=== PATIENT | female | born 1985 | race Caucasian/White ===

== ENCOUNTER → 2018-07-28 16:11 | Outpatient (CLI) | payer OTHER, SELFPAY ==
[2018-07-28 15:03] VITALS: BMI 22.3
[2018-07-28 16:48] LABS: Absolute Lymphocyte Count 1.73 X10^3/ul (0.83-4.51); Basophil# 0.04 X10^3/uL; Basophil% 0.6 % (0-1); Eosinophil# 0.41 X10^3/uL; Hematocrit 38.4 % (37-47); Hemoglobin 13.1 g/dl (12.0-15.0); Lymphocyte # 1.73 X10^3/ul (4.0); Lymphocyte % 25.4 % (19-41); Mean Corp Hgb Conc 34.1 g/gl (32-36); Mean Platelet Vol. 12.2 fl (6.2-12.0); Monocyte# 0.58 X10^3/uL; Monocyte% 8.5 % (0-10); Neutrophil # 4.01 X10^3/uL (2.7-7.7); Neutrophil % 59.1 % (47-70); Platelet Count 113 K/mm3 (150-450); RBC Distribution Width CV 11.7 % (11.6-14.6); RBC Distribution Width SD 37.8 fl (35.1-43.9); Red Blood Count 4.22 M/mm3 (4.2-5.4); White Blood Count 6.8 K/mm3 (4.4-11.0)
[2018-07-28 16:49] LABS: POSITIVE COUNT NO; POSITIVE DIFFERENTIAL NO; POSITIVE MORPHOLOGY NO
[2018-07-28 18:21] LABS: HIV - WCH Non-Reactive (Nonreactive); Rubella IgG 16.1 IU/mL
[2018-07-28 19:59] LABS: Chlamydia Trachomatis by PCR Negative (Negative); Neisserai gonorrhoeae by PCR Negative (Negative); Probe Check PASS; Sample Adequacy Control PASS; Specimen Processing Control PASS
[2018-07-29 20:21] LABS: Rapid Plasmin Reagin (RPR) NONREACTIVE (NONREACTIVE)
[2018-07-30 08:28] LABS: HEPATITIS B SURFACE AG Negative (Negative)
[2018-08-03 14:52] LABS: HPV APTIMA, High Risk Negative (Negative)
== END ==
PROVIDERS: Family Provider Family Medicine; PCP Family Medicine; Referring Provider Obstetrics & Gynecology; Visit Provider Obstetrics & Gynecology
DX: Z34.90 Encounter for supervision of normal pregnancy, unspecified, unspecified trimester (principal); Z12.4 Encounter for screening for malignant neoplasm of cervix
CPT/HCPCS: 36415; 85025; 86592; 86703; 86762; 86850; 86900; 87086; 87088; 87340; 87491; 87591; 87624; 88175; G0145

== ENCOUNTER → 2018-08-27 10:08 | Outpatient (CLI) | payer OTHER, SELFPAY ==
[2018-08-27 09:29] VITALS: BMI 22.4
[2018-08-27 10:27] LABS: Absolute Lymphocyte Count 1.65 X10^3/ul (0.83-4.51); Basophil# 0.04 X10^3/uL; Basophil% 0.5 % (0-1); Eosinophil# 0.18 X10^3/uL; Eosinophils% 2.1 % (0-5); Hematocrit 37.3 % (37-47); Hemoglobin 12.7 g/dl (12.0-15.0); Lymphocyte # 1.65 X10^3/ul (4.0); Lymphocyte % 19.6 % (19-41); Mean Corpuscular Hgb 30.8 pg (27.0-32.0); Mean Corpuscular Volume 90.5 fL (81-99); Mean Platelet Vol. 10.9 fl (6.2-12.0); Monocyte# 0.55 X10^3/uL; Monocyte% 6.5 % (0-10); Neutrophil % 71.2 % (47-70); POSITIVE COUNT NO; POSITIVE DIFFERENTIAL NO; POSITIVE MORPHOLOGY NO; Platelet Count 173 K/mm3 (150-450); RBC Distribution Width CV 12.2 % (11.6-14.6); RBC Distribution Width SD 40.1 fl (35.1-43.9); Red Blood Count 4.12 M/mm3 (4.2-5.4); White Blood Count 8.4 K/mm3 (4.4-11.0)
== END ==
PROVIDERS: Family Provider Family Medicine; PCP Family Medicine; Visit Provider Obstetrics & Gynecology
DX: Z34.91 Encounter for supervision of normal pregnancy, unspecified, first trimester (principal); Z3A.12 12 weeks gestation of pregnancy
CPT/HCPCS: 36415; 85025

== ENCOUNTER → 2018-10-13 | Outpatient (CLI) | payer OTHER, SELFPAY ==
[2018-09-24 09:16] VITALS: BMI 22.4
== END | disposition home or self-care (01) ==
PROVIDERS: Family Provider Family Medicine; PCP Family Medicine; Referring Provider Obstetrics & Gynecology; Visit Provider Obstetrics & Gynecology
DX: Z34.82 Encounter for supervision of other normal pregnancy, second trimester (principal)
CPT/HCPCS: 36415

== ENCOUNTER → 2018-12-16 08:59 | Outpatient (CLI) | payer OTHER, SELFPAY ==
[2018-11-26 11:28] VITALS: BMI 22.4
--- NOTE | 2018-12-16 09:01 | US_ITS ---
STUDY: SECOND AND THIRD TRIMESTER OBSTETRICAL ULTRASOUND REASON FOR EXAM: Female, 33 years old. growth. LMP: Unknown. Estimated due date March 08, 2019 is provided. TECHNIQUE: Transabdominal TECHNICAL QUALITY: Adequate. PRIOR ULTRASOUND: None. FINDINGS: There is a single intrauterine fetus. The fetus is in a breech presentation. There is demonstrated cardiac activity with a heart rate of 156 bpm. There is a normal amniotic fluid volume. The largest amniotic fluid pocket measures 6.0 cm. The amniotic fluid index (SANDEEP) is 15.1 cm. The placenta is posterior in location and is not low lying. There are Grade 1 placental changes. The cervix measures 4.0 cm in length and is closed. The adnexal regions are not visualized. BIOMETRY: BPD: 7.4 cm: 29 weeks, 5 days HC: 27.3 cm: 29 weeks, 6 days AC: 25.0 cm: 29 weeks, 2 days FL: 5.5 cm: 29 weeks, 0 days CI: 79% FL/BPD: 74% FL/AC: 22% HC/AC: 1.09 age by current US: 29 weeks, 4 days. ALLEN by current US: February 27, 2019. Estimated weight: 1353 grams, +/- 198 grams, 72 %. Age by given ALLEN: 28 weeks, 2 days. Given ALLEN: March 08, 2019. US/OB Limited With Biometrics IMPRESSION: 1. Single living intrauterine fetus, presently in breech presentation, at estimated gestational age of 29 weeks, 4 days. Estimated date of delivery by today's study is February 27, 2019. 2. Estimated weight is 1353 g. 3. The cervix is closed. Cervical length is 4.0 cm. 4. Grade 1 posterior placenta is not low-lying. 5. Normal amniotic fluid volume within index of 15.1 cm. Electronically Signed: Isaias Carl MD at 16:54 EDT , Service support ,
== END ==
PROVIDERS: Family Provider Family Medicine; PCP Family Medicine; Referring Provider Obstetrics & Gynecology; Visit Provider Obstetrics & Gynecology
DX: O28.3 Abnormal ultrasonic finding on antenatal screening of mother (principal)
CPT/HCPCS: 76816

== ENCOUNTER → 2018-12-17 08:59 | Outpatient (CLI) | payer OTHER, SELFPAY ==
[2018-12-17 08:45] VITALS: BMI 22.4
[2018-12-17 09:54] LABS: Absolute Lymphocyte Count 1.21 X10^3/uL (0.83-4.51); Basophil# 0.03 X10^3/uL; Basophil% 0.4 % (0-1); Eosinophil# 0.09 X10^3/uL; Eosinophils% 1.1 % (0-5); Hematocrit 39.1 % (37-47); Hemoglobin 13.1 g/dL (12.0-15.0); Lymphocyte # 1.21 X10^3/ul (4.0); Lymphocyte % 15.3 % (19-41); Mean Corp Hgb Conc 33.5 g/dL (32-36); Mean Corpuscular Hgb 31.8 pg (27.0-32.0); Mean Corpuscular Volume 94.9 fL (81-99); Mean Platelet Vol. 11.4 fl (6.2-12.0); Monocyte# 0.47 X10^3/uL; NRBC Flagged by Analyzer 0 % (0-5); Neutrophil # 6.02 X10^3/uL (2.7-7.7); Neutrophil % 76.3 % (47-70); Platelet Count 143 K/mm3 (150-450); RBC Distribution Width CV 12.7 % (11.6-14.6); RBC Distribution Width SD 44.1 fl (35.1-43.9); Red Blood Count 4.12 M/mm3 (4.2-5.4); White Blood Count 7.9 K/mm3 (4.4-11.0)
[2018-12-17 10:12] LABS: Glucose Challenge Gest 1H 50g 56 mg/dL (70-140)
== END ==
PROVIDERS: Family Provider Family Medicine; PCP Family Medicine; Referring Provider Obstetrics & Gynecology; Visit Provider Obstetrics & Gynecology
DX: O99.112 Other diseases of the blood and blood-forming organs and certain disorders involving the immune mechanism complicating pregnancy, second trimester (principal); D69.6 Thrombocytopenia, unspecified; O28.3 Abnormal ultrasonic finding on antenatal screening of mother; Z3A.25 25 weeks gestation of pregnancy
CPT/HCPCS: 36415; 82950; 85025

== ENCOUNTER → 2019-01-14 09:05 | Outpatient (CLI) | payer OTHER, SELFPAY ==
[2019-01-14 08:58] VITALS: BMI 22.4
[2019-01-14 09:34] LABS: Absolute Neutrophil Count 8.4 X10^3/uL (2.0-7.7); Basophil# 0.04 X10^3/uL; Basophil% 0.4 % (0-1); Eosinophil# 0.14 X10^3/uL; Eosinophils% 1.4 % (0-5); Hematocrit 40.7 % (37-47); Hemoglobin 13.7 g/dL (12.0-15.0); Lymphocyte % 7.9 % (19-41); Mean Corp Hgb Conc 33.7 g/dL (32-36); Mean Corpuscular Hgb 32.2 pg (27.0-32.0); Mean Corpuscular Volume 95.8 fL (81-99); Mean Platelet Vol. 11.5 fl (6.2-12.0); Monocyte% 6.9 % (0-10); NRBC Flagged by Analyzer 0 % (0-5); Neutrophil # 8.42 X10^3/uL (2.7-7.7); Neutrophil % 82.6 % (47-70); Platelet Count 137 K/mm3 (150-450); RBC Distribution Width CV 12.8 % (11.6-14.6); Red Blood Count 4.25 M/mm3 (4.2-5.4); White Blood Count 10.2 K/mm3 (4.4-11.0)
[2019-01-14 09:51] LABS: ROM Internal Control Test YES-OK TO RESULT pt. (Internal QC); ROM Patient Test Negative (Negative)
== END ==
PROVIDERS: Family Provider Family Medicine; PCP Family Medicine; Referring Provider Nurse Practitioner Women's Health; Visit Provider Nurse Practitioner Women's Health
DX: Z34.90 Encounter for supervision of normal pregnancy, unspecified, unspecified trimester (principal); N89.8 Other specified noninflammatory disorders of vagina
CPT/HCPCS: 36415; 84112; 85025

== ENCOUNTER → 2019-02-08 12:14 | Outpatient (CLI) | payer OTHER, SELFPAY ==
[2019-01-28 09:26] VITALS: BMI 22.4
--- NOTE | 2019-02-08 12:16 | US_ITS ---
STUDY: SECOND AND THIRD TRIMESTER OBSTETRICAL ULTRASOUND - LIMITED REASON FOR EXAM: Female, 33 years old LMP: 06/01/2018 PRIOR ULTRASOUND: 12/16/1989 TECHNIQUE: Transabdominal TECHNICAL QUALITY: Adequate. FINDINGS: There is a single intrauterine fetus. The fetus is in a cephalic presentation. There is demonstrated cardiac activity with a heart rate of 140 bpm. There is a normal amniotic fluid volume. The largest amniotic fluid pocket measures 3.9 cm. The amniotic fluid index (SANDEEP) is 13.0 cm. The placenta is posterior in location and is not low lying. There are Grade 1 placental changes. The cervix measures cm in length. BIOMETRY: BPD: 9.2 cm: 37 weeks, 2 days HC: 32.4 cm: 36 weeks, 5 days AC: 32.4 cm: 36 weeks, 1 days FL: 7.0 cm: 35 weeks, 6 days Age by LMP: 36 weeks, 0 days. ALLEN by LMP: 03/08/2019. age by current US: 36 weeks, 3 days. ALLEN by current US: 03/05/2019. Estimated weight: 2960 grams, +/- 444 grams, 68 percentile. Gender: US/OB Limited With Biometrics IMPRESSION: Living intrauterine of 36 weeks 3 days as described above Electronically Signed: Norberto Stephens MD at 16:10 EDT Tel , Service support ,
== END ==
PROVIDERS: Family Provider Family Medicine; PCP Family Medicine; Referring Provider Obstetrics & Gynecology; Visit Provider Obstetrics & Gynecology
DX: O28.3 Abnormal ultrasonic finding on antenatal screening of mother (principal); Z3A.36 36 weeks gestation of pregnancy
CPT/HCPCS: 76816

== ENCOUNTER → 2019-02-11 08:45 | Outpatient (CLI) | payer OTHER, SELFPAY ==
[2019-02-11 08:34] VITALS: BMI 22.4
[2019-02-11 09:04] LABS: Absolute Lymphocyte Count 1.02 X10^3/uL (0.83-4.51); Absolute Neutrophil Count 5.3 X10^3/uL (2.0-7.7); Basophil# 0.04 X10^3/uL; Basophil% 0.6 % (0-1); Eosinophil# 0.09 X10^3/uL; Eosinophils% 1.3 % (0-5); Hematocrit 40.8 % (37-47); Hemoglobin 13.8 g/dL (12.0-15.0); Lymphocyte # 1.02 X10^3/ul (4.0); Lymphocyte % 14.6 % (19-41); Mean Corp Hgb Conc 33.8 g/dL (32-36); Mean Corpuscular Hgb 31.9 pg (27.0-32.0); Mean Corpuscular Volume 94.2 fL (81-99); Monocyte# 0.51 X10^3/uL; Monocyte% 7.3 % (0-10); NRBC Flagged by Analyzer 0 % (0-5); Neutrophil # 5.26 X10^3/uL (2.7-7.7); Neutrophil % 75.3 % (47-70); Platelet Count 126 K/mm3 (150-450); RBC Distribution Width CV 12.5 % (11.6-14.6); RBC Distribution Width SD 43.8 fl (35.1-43.9); Red Blood Count 4.33 M/mm3 (4.2-5.4)
== END ==
PROVIDERS: Family Provider Family Medicine; PCP Family Medicine; Referring Provider Obstetrics & Gynecology; Visit Provider Obstetrics & Gynecology
DX: D69.6 Thrombocytopenia, unspecified (principal); O99.119 Other diseases of the blood and blood-forming organs and certain disorders involving the immune mechanism complicating pregnancy, unspecified trimester
CPT/HCPCS: 36415; 85025; 87081

== ENCOUNTER → 2019-02-18 16:02 | Outpatient (CLI) | payer OTHER, SELFPAY ==
[2019-02-18 08:26] VITALS: BMI 22.4
--- NOTE | 2019-02-18 16:18 | US_ITS ---
STUDY: SECOND AND THIRD TRIMESTER OBSTETRICAL ULTRASOUND REASON FOR EXAM: Female, 33 years old SANDEEP.. LMP: June 01, 2018. TECHNIQUE: Transabdominal TECHNICAL QUALITY: Adequate. PRIOR ULTRASOUND: February 08, 2019 and December 16, 2018 FINDINGS: There is a single intrauterine fetus. The fetus is in a cephalic presentation. There is demonstrated cardiac activity with a heart rate of 122 bpm. There is a low normal amniotic fluid volume. The largest amniotic fluid pocket measures 3.4 cm. The amniotic fluid index (SANDEEP) is 8.48 cm. The placenta is fundal and posterior low-lying . There are Grade 2 placental changes. The cervix is not visualized age by prior US: 38 weeks, 5 days. ALLEN by prior US: February 27, 2019. Age by LMP: 37 weeks, 3 days. ALLEN by LMP: March 08, 2019. US/OB Limited (No Biometrics) IMPRESSION: 1. Limited study to establish SANDEEP. There is a low normal SANDEEP of 8.48 cm. 2. Live single intrauterine in a vertex presentation. 3. heart rate of 122 bpm. Electronically Signed: Cecil Olea DO at 19:20 EDT Tel [phone], Service support ,
== END ==
PROVIDERS: Family Provider Family Medicine; PCP Family Medicine; Referring Provider Obstetrics & Gynecology; Visit Provider Obstetrics & Gynecology
DX: O28.3 Abnormal ultrasonic finding on antenatal screening of mother (principal); Z3A.00 Weeks of gestation of pregnancy not specified
CPT/HCPCS: 76815

== ENCOUNTER → 2019-02-22 11:25 | Outpatient (CLI) | payer OTHER, SELFPAY ==
[2019-02-18 08:26] VITALS: BMI 22.4
--- NOTE | 2019-02-22 11:27 | US_ITS ---
STUDY: SECOND AND THIRD TRIMESTER OBSTETRICAL ULTRASOUND - LIMITED REASON FOR EXAM: Female, 33 years old. well being. Assess amniotic fluid index. LMP: June 01, 2018 per prior exam. PRIOR ULTRASOUND: Limited OB ultrasound February 18, 2019 and February 08, 2019. TECHNIQUE: Transabdominal TECHNICAL QUALITY: Adequate. FINDINGS: There is a single intrauterine fetus. The fetus is in a cephalic presentation. There is demonstrated cardiac activity with a heart rate of 128 bpm. There is a lower normal amniotic fluid volume. The largest amniotic fluid pocket measures 3.37 cm. The amniotic fluid index (SANDEEP) is 7.92 cm. The placenta is fundal in location. There are Grade 3 placental changes. The cervix is not visualized. Age by LMP: 38 weeks, 0 days. ALLEN by LMP: March 08, 2019. age by February 08 US: 39 weeks, 2 days. ALLEN by US: February 27, 2019. US/OB Limited (No Biometrics) IMPRESSION: 1. Single living intrauterine fetus in cephalic presentation. 2. Lower normal amniotic fluid volume with an index of 7.92 cm. 3. Grade 3 fundal placenta is not low-lying. Electronically Signed: Isaias Carl MD at 19:39 EDT , Service support ,
== END ==
PROVIDERS: Family Provider Family Medicine; PCP Family Medicine; Referring Provider Obstetrics & Gynecology; Visit Provider Obstetrics & Gynecology
DX: Z36.9 Encounter for antenatal screening, unspecified (principal)
CPT/HCPCS: 76815

== ENCOUNTER → 2019-03-03 11:00 | Outpatient (CLI) | payer OTHER, SELFPAY ==
[2019-02-24 09:55] VITALS: BMI 22.4
[2019-03-03 09:14] VITALS: BMI 22.4
--- NOTE | 2019-03-03 11:02 | US_ITS ---
HISTORY: well-being. 33 images. 3 cine clips. Findings: Cine clips demonstrate heart motion. Presentation is cephalic. heart motion is detected by M-mode imaging at 120 bpm. The placenta is fundal. SANDEEP is 13.3 cm. Breathing movements were demonstrated. Gross body movements are demonstrated. tone is perceived as normal. measurements were not performed. US/Biophysical Profile IMPRESSION: Biophysical profile score is 8 out of 8. SANDEEP is 13.3 cm. Presentation is cephalic. at 0135 Reported and signed by: Ananth Coleman MD Electronically Signed: Ananth Coleman MD at 1:34 EDT Tel , Service support ,
== END ==
PROVIDERS: Family Provider Family Medicine; PCP Family Medicine; Referring Provider Nurse Practitioner Women's Health; Visit Provider Nurse Practitioner Women's Health
DX: O28.8 Other abnormal findings on antenatal screening of mother (principal); Z3A.00 Weeks of gestation of pregnancy not specified
CPT/HCPCS: 76818

== ENCOUNTER 2019-03-06 03:26 | Inpatient (IN) | payer OTHER, SELFPAY ==
[2019-01-28 09:26] VITALS: BMI 22.4
[2019-03-03 09:14] VITALS: BMI 22.4
[2019-03-06 03:25] LABS: ROM Internal Control Test YES-OK TO RESULT pt. (Internal QC); ROM Patient Test POSITIVE (Negative); Record Kit Lot#, ROM+ J8255
[2019-03-06] MEDS: Lactated Ringers 1,000 ML 50 ML IV (03:50)
[2019-03-06] MEDS: Lactated Ringers 500 ML 999 ML IV (03:55)
[2019-03-06 04:11] LABS: Absolute Lymphocyte Count 2.04 X10^3/uL (0.83-4.51); Absolute Neutrophil Count 5.8 X10^3/uL (2.0-7.7); Basophil# 0.05 X10^3/uL; Basophil% 0.6 % (0-1); Eosinophil# 0.14 X10^3/uL; Eosinophils% 1.6 % (0-5); Hematocrit 41.7 % (37-47); Hemoglobin 13.6 g/dL (12.0-15.0); Lymphocyte # 2.04 X10^3/ul (4.0); Lymphocyte % 23.4 % (19-41); Mean Corp Hgb Conc 32.6 g/dL (32-36); Mean Corpuscular Hgb 30.6 pg (27.0-32.0); Mean Corpuscular Volume 93.7 fL (81-99); Mean Platelet Vol. 12.5 fl (6.2-12.0); Monocyte# 0.62 X10^3/uL; Monocyte% 7.1 % (0-10); NRBC Flagged by Analyzer 0 % (0-5); Neutrophil # 5.83 X10^3/uL (2.7-7.7); Neutrophil % 66.7 % (47-70); Platelet Count 136 K/mm3 (150-450); RBC Distribution Width CV 12.3 % (11.6-14.6); RBC Distribution Width SD 42.5 fl (35.1-43.9); Red Blood Count 4.45 M/mm3 (4.2-5.4); White Blood Count 8.7 K/mm3 (4.4-11.0)
[2019-03-06 04:14] VITALS: BMI 27.4
[2019-03-06] MEDS: fentaNYL-bupivacaine (epidural) 100 ML BAG EPIDURAL (05:10)
[2019-03-06] MEDS: Oxytocin 30 units/NS 500 ml 30 UNITS/500 ML IV.SOLN 334 UNITS IV (06:09)
--- NOTE | 2019-03-06 06:28 | PCM.HP.BLA ---
History and Physical Date of Admission: 03/06/19 History of This : This is a 33-year-old patient 2 para 1 who presents in active labor. care has been uneventful except for thrombocytopenia during the , echogenic focus in the baby's heart, and borderline oligohydramnios. Vital Signs 03/03/19 Body Mass Index (BMI) 22.4 03/03/19 Height 5 ft 4 in 03/03/19 Weight: 159 lb 03/03/19 Body Mass Index (BMI) 27.3 03/03/19 Blood Pressure 108/60 Allergies citric acid [From DDAVP] Allergy (Verified 03/03/19 09:14) Unknown desmopressin acetate [From DDAVP] Allergy (Verified 03/03/19 09:14) Unknown sodium phosphate,dibasic [From DDAVP] Allergy (Verified 03/03/19 09:14) Unknown Medications ondansetron HCl 4 mg tablet 4 mg PO BID-TID PRN 07/28/18 [History Confirmed 03/03/19] vitamin#30 30 mg iron-10 mg iron-folic acid 1 mg-omg3 capsule cap PO cap 07/28/18 [History Confirmed 03/03/19] meclizine 25 mg tablet 25 mg PO TID #90 tab 09/24/18 [Rx Confirmed 03/03/19] breast pump See Rx Instructions .ROUTE .MEDSUPPLY #1 ea 12/22/18 [Rx Confirmed 03/03/19] ranitidine 150 mg tablet 150 mg PO BID #60 tab 12/31/18 [Rx Confirmed 03/03/19] Last Menstral Period: 06/01/18 Zika: Zika virus screening: Negative : No PFSH PFSH Social History (Updated 03/03/19 @ 09:34 by DAMIR Anthony) Smoking Status: Never smoker alcohol intake: current details: social substance use type: does not use caffeine: Yes what type of physical activity do you participate in: walking seatbelt use: always do you feel safe at home: Yes additional social history: [employer]- [employer] Patient works as a chief financial officer Pregancy History 2 Elective abortions Hx Para 1 Spontaneous abortions Hx # Term Pregnancies Ectopic pregnancies Hx # Pregnancies Multiple births # of living children Past Pregnancies Del. Date Name GA/Weeks Outcome Route Bth Weight Infant Gen Labor Lgth Anesthesia Del Locatn Provider FOB Unknown 2010 [place] 40 live - full term 8 lbs Female WB ALLEN Calculator Estimated Delivery Date Method Current WG Current Estimate 03/08/19 LMP (Certain) 39w 2d Expected Delivery Route/Plan Labor Preferences- labor support person: [employer] pain management options preferred: epidural cut cord/dad catch: yes : yes PP control planned: iud discussed possible routes of delivery and associated risks: discussed and no questions. special requests: no Specific Issue/Plans flu vaccine: declines tdap vaccine: given rhogam: na LARC form signed: declines Problem list reviewed and updated with the most current plan of care details and appropriate orders placed. Relevant counseling for the gestational age provided. Continue routine care and follow up unless otherwise noted in visit notes/problem list details Initial Weight: 130 lb Date EGA Weight BP Urine Prot Glucose FHR FuHt Pres Mov CTX Dilation Effaced St Visit Note 08/27/18 12w 3d 130 lb 6 oz (+6 oz) 94/60 Negative Negative 160 no vb cramping, still nauseated, discussed supprotive therapy 09/24/18 16w 3d 133 lb (+3 lb) 100/68 Negative Negative 145 16 no vb lof cramping, still nauseated will add meclizine 10/25/18 20w 6d 139 lb 4 oz (+9 lb 4 oz) 100/76 Negative Negative 140 20 no vb lof cramping reviewed us normal genetics 11/26/18 25w 3d 146 lb 4 oz (+16 lb 4 oz) 118/60 140 25 no vb lof good fm n oregualr ctx, growth us at 28-30 12/17/18 28w 3d 149 lb (+19 lb) 104/68 Negative Negative 140 29 no vb lof good fm n oregualr ctx 12/31/18 30w 3d 151 lb (+21 lb) 98/80 Negative Negative 140 31 no vb lof good fm no regular ctx 01/14/19 32w 3d 154 lb (+24 lb) 102/70 Negative Negative 136 32 0 Has cough, congestion. Thinks had leakage clear fluid yesterday. Good FM. NO Vb. 01/28/19 34w 3d 156 lb (+26 lb) 102/62 Negative Negative 135 34 Cephalic Active absent no vb lof 02/11/19 36w 3d 157 lb 4 oz (+27 lb 4 oz) 104/74 Negative Negative 140 35 Cephalic Active absent 1 30 no vb lof had us this week 02/18/19 37w 3d 160 lb (+30 lb) 100/66 125 32 Cephalic 1.5 check sandeep today no vb lof good fm no reg ctx 02/24/19 38w 2d 157 lb (+27 lb) 108/76 Negative Negative 120 sandeep 11 cm no vb lof good fm no reg ctx 03/03/19 39w 2d 159 lb (+29 lb) 108/60 Negative Negative 142 37 Cephalic 3.0 60 SANDEEP US today. Good FM. No LOF, VB. Irreg CTX Visit Notes Visit Date: 03/03/19 ??SANDEEP US today. Good FM. No LOF, VB. Irreg CTX ??Rebecca Taylor NP-C on 03/03/19 Visit Date: 02/24/19 ??sandeep 11 cm no vb lof good fm no reg ctx ??Iris Corbin MD on 02/24/19 Visit Date: 02/18/19 ??check sandeep today no vb lof good fm no reg ctx ??Iris Corbin MD on 02/18/19 Visit Date: 02/11/19 ??no vb lof had us this week ??Iris Corbin MD on 02/11/19 Visit Date: 01/28/19 ??no vb lof ??Iris Corbin MD on 01/28/19 Visit Date: 01/14/19 ??Has cough, congestion. Thinks had leakage clear fluid yesterday. Good FM. NO Vb. ??Rebecca Taylor NP-C on 01/14/19 Visit Date: 12/31/18 ??no vb lof good fm no regular ctx ??Iris Corbin MD on 12/31/18 Visit Date: 12/17/18 ??no vb lof good fm n oregualr ctx ??Iris Corbin MD on 12/17/18 Visit Date: 11/26/18 ??no vb lof good fm n oregualr ctx, growth us at 28-30 ??Iris Corbin MD on 11/26/18 Visit Date: 10/25/18 ??no vb lof cramping reviewed us normal genetics ??Iris Corbin MD on 10/25/18 Visit Date: 09/24/18 ??no vb lof cramping, still nauseated will add meclizine ??Iris Corbin MD on 09/24/18 Visit Date: 08/27/18 ??no vb cramping, still nauseated, discussed supprotive therapy ??Iris Corbin MD on 08/27/18 ACOG First Trimester First Trimester: Desire for , Alcohol, Tobacco Cessation, Illicit/Recreational Drug/Substance Use, Intimate Partner Violence, Barriers to care, Unstable Housing, Communication Barriers, Environmental/Work Hazards, Anticipated Course of Care, Toxoplasmosis Precations, Use of Any medications, Sexual activity, Exercise, Dental Care, Sauna/Hot tub use, Seat Belt use, Childbirth classes/Hospital facilities, , Travel, Indications for US and Screening for Aneuploidy Diagnostics Diagnostics Diagnostics Glucose 1 Hr 50 gm 56 mg/dL (70-140) L 12/17/18 Hgb 13.8 g/dL (12.0-15.0) 02/11/19 Hct 40.8 % (37-47) 02/11/19 Details: HIV: Urine Culture: Sequential Screen: NIPT Screen: Results [id number] Office Urine Glucose Negative Last Edit by Sapna Dow on 03/03/19 09:15 Office Urine Protein Negative Last Edit by Sapna Dow on 03/03/19 09:15 PHYSICAL EXAMINATION General Appearence: 33 yo female in no acute distress Vital Signs: AF, VSS Heart: RRR without rubs or gallops Lungs: CTA x 2 Breasts: deferred Abdomen: gravid Pelvis: Cervix: 4 cm Presentation: cephalic Station: -2 Fetus: Size: AGA Movement: present Heart: present Impression /Plan: 39+ week Intrauterine in active labor. Preparations in progress for delivery.
--- NOTE | 2019-03-06 06:46 | PCM.OPRPT ---
Vaginal Delivery Maternal Presentation: Active Labor Amniotic Membrane Rupture Type: Spontaneous Amniotic Fluid Description: Clear Final ALLEN: 03/08/19 Final ALLEN Source: US <20 weeks Gestational age: 39 Weeks and 5 Days Date of Procedure: 03/06/19 Pre-Operative Diagnosis: IUP Post-Operative Diagnosis: IUP Surgery/ Procedure Performed: Spontaneous Vaginal Delivery Type of Anesthesia: Epidural Description of Procedure: Spontaneous vaginal delivery of a viable male with Apgars of 9/9 from an occiput anterior presentation with clear amniotic fluid and normal three-vessel placenta. Cord around the shoulders and under the arm tight. No episiotomy. First-degree midline laceration repaired with 3-0 repeat suture. Sponges okay. Delivery physician: Wiliam Padilla MD. Presentation: Vertex Placental Delivery Description: Spontaneous Placenta Disposition: [facility] Cord Vessel Description: 3 Vessels Cord Gases drawn per routine: ABG Cord Entanglement: - - Under arm and around shoulder tight Estimated Blood Loss: 250 cc A gender: Male (1 minute): 9 (5 minute): 9 Episiotomy Description: None Laceration: Midline, 1st degree Medications given after delivery: IV Pitocin Complications: None
--- NOTE | 2019-03-06 06:49 | DCINST_ITS ---
Discharge Diet: No Restrictions Discharge Activity: May Shower, May Take a Tub Bath May resume sexual activity in: 4-6 weeks Additional Activity Instructions:: Nothing in the vagina for 4-6 weeks. You may return to work/school in 6 weeks. Call your doctor if you observe: Fever of 101 or Higher, Inability to urinate, Inability to have a bowel movement, Using more than one pad per hour Additional Instructions: If you experience any of the following, contact your healthcare provider. * Bleeding that soaks a pad every hour for 2 hours * Unrelieved incision or abdominal pain * Swelling, redness, discharge or bleeding from your incision or episiotomy site * Your incision begins to separate * Problems urinating (including inability to urinate or burning while urinating). * Visual changes * Severe headache * Flu-like symptoms * Pain or redness in one of both of your breasts * Pain, warmth, tenderness or swelling in your legs, especially the calf area * Frequent nausea and vomiting * Symptoms of depression or anxiety If you experience any of the following, call 911 or go to the nearest Emergency Room. * Chest pain * Problems breathing * Seizure activity * Partial or complete paralysis of a body part, slurred speech, weakness or drooping of the face, or a sudden inability to walk or hold your balance Allergies/Adverse Reactions: Allergies citric acid [From DDAVP] Allergy (Verified 03/06/19 04:38) Unknown desmopressin acetate [From DDAVP] Allergy (Verified 03/06/19 04:38) Unknown sodium phosphate,dibasic [From DDAVP] Allergy (Verified 03/06/19 04:38) Unknown Medications to take at Discharge vitamin#30 30 mg iron-10 mg iron-folic acid 1 mg-omg3 capsule 1 cap PO cap 07/28/18 breast pump See Rx Instructions .ROUTE .MEDSUPPLY #1 ea 12/22/18 ranitidine 150 mg tablet 150 mg PO BID #60 tab 12/31/18 Please Follow Up With: Iris Corbin MD - [phone] When: Call to make an appointment with your doctor in 6 weeks. Primary Care Physician: Julián Hooker MD [Primary Care Provider] - Test Results: Test results from this visit will be discussed in further detail at your follow- up appointment, if applicable.
[2019-03-06] MEDS: 0.9% Saline Lock 10 ML Syringe IV (08:47)
[2019-03-06] MEDS: Ibuprofen 600 MG Tablet PO ×3 (08:52→23:39)
--- NOTE | 2019-03-06 09:30 | NURSING ---
Epidural cath removed, blue tip intact
[2019-03-06] MEDS: Acetaminophen 500 MG Tablet 1000 MG PO ×2 (11:57→19:53)
[2019-03-06 13:30] VITALS: BP 105/70; PULSE 53; RESP 16; TEMP 36.4
[2019-03-06 16:20] VITALS: BP 104/65; PULSE 72; RESP 16; TEMP 36.7
[2019-03-06 19:56] VITALS: BP 108/71; PULSE 54; RESP 16; TEMP 36.4; O2SAT 96
[2019-03-07 00:41] VITALS: BP 103/55; PULSE 58; RESP 16; TEMP 36.3; O2SAT 98
[2019-03-07 04:45] VITALS: BP 102/61; PULSE 56; RESP 16; TEMP 36.1; O2SAT 97
[2019-03-07] MEDS: Acetaminophen 500 MG Tablet 1000 MG PO ×2 (05:52→14:09)
--- NOTE | 2019-03-07 07:49 | PCM.PN.OB ---
Subjective: doing well no complaints pain controlled no CP SOB N V ambulating well tolerating po lochia moderate, going well - Physical Exam General: Alert, Oriented x3 Abdomen: Soft, Non Tender, Non-Distended, - - FF below U Vital Signs Temp Pulse Resp BP Pulse Ox 97.0 F L 56 L 16 102/61 97 03/07/19 04:45 03/07/19 04:45 03/07/19 04:45 03/07/19 04:45 03/07/19 04:45 Oxygen Delivery Method Room Air Weight: 160 lb Body Mass Index (BMI) 27.4 Intake and Output for Last 24 Hours 03/05/19 03/06/19 03/07/19 23:59 23:59 23:59 Intake Total 1090.00 / 1090.00 Output Total 1000 / 1000 Balance 90.00 / 90.00 Medical Necessity - Tobacco Use Smoking Status: Never smoker Assessment/Plan All Active Problems (Last Reviewed 03/03/19 @ 09:14 by Sapna Dow) SANDEEP (amniotic fluid index) borderline low (Acute) Influenza vaccination declined (Acute) General counselling and advice on contraception (Acute) Echogenic intracardiac focus of fetus on ultrasound (Acute) Gestational thrombocytopenia (Acute) (Acute) Supervision of normal (Acute) s/p PPD # 1 1. routine post delivery care 2. breast feeding- support given 3. rh positive 4. rubella immune 5. platelets stable 6. Home today
[2019-03-07 08:20] VITALS: BP 95/56; PULSE 77; RESP 20; TEMP 36.3; O2SAT 95
[2019-03-07] MEDS: Ibuprofen 600 MG Tablet PO ×2 (08:20→15:18)
[2019-03-07 14:00] VITALS: BP 100/68; PULSE 69; TEMP 36.2; O2SAT 100
== END 2019-03-07 15:50 | disposition home or self-care (01) | DRG 806 ==
LOC: WPOUT 03:36
PROVIDERS: Admitting Provider Obstetrics & Gynecology; Family Provider Family Medicine; PCP Family Medicine; Referring Provider Advanced Practice Midwife; Visit Provider Advanced Practice Midwife
DX: O41.03X0 Oligohydramnios, third trimester, not applicable or unspecified (principal); O69.2XX0 Labor and delivery complicated by other cord entanglement, with compression, not applicable or unspecified; D69.59 Other secondary thrombocytopenia; O99.12 Other diseases of the blood and blood-forming organs and certain disorders involving the immune mechanism complicating childbirth; O70.0 First degree perineal laceration during delivery; Z3A.37 37 weeks gestation of pregnancy; Z37.0 Single live birth
CPT/HCPCS: 59050; 84112; 85025; 86850; 86900; 86901; 99218; J7120; A4216; G0378

== ENCOUNTER → 2019-05-02 14:33 | Outpatient (CLI) | payer OTHER, SELFPAY ==
[2019-04-22 10:43] VITALS: BMI 27.4
--- NOTE | 2019-05-02 14:35 | US_ITS ---
STUDY: ULTRASOUND OF THE FEMALE PELVIS - COMPLETE REASON FOR EXAM: Female, 33 years old. IUD placement. LMP: TECHNIQUE: Transabdominal and Transvaginal TECHNICAL QUALITY: Adequate. COMPARISON: None. FINDINGS: The uterus is anteverted and is in a midline position. The uterus measures 8.3 cm x 5.5 cm x 4.4 cm. There is a Nabothian cyst of the cervix. The endometrium measures 5 mm in thickness, and is hyperechoic. There is no demonstrated endometrial mass. There is no demonstrated myometrial mass. I.U.D. - The patient does have an I.U.D. . The IUD is within the anterior left myometrium. The right ovary is visualized. The right ovary measures 3.1 cm x 1.9 cm x 1.6 cm. There is no right ovarian cyst or ovarian mass. There is no visualized right adnexal mass or complex lesion. There is normal arterial and normal venous vascularity. The left ovary is visualized. The left ovary measures 3 cm x 1.4 cm x 1.8 cm. There is no left ovarian cyst or ovarian mass. There is no visualized left adnexal mass or complex lesion. There is normal arterial and normal venous vascularity. There is no fluid in the cul-de-sac. The pre void volume of the bladder was 298 ml. Polycystic ovary disease: No. US/Transvaginal Non- IMPRESSION: The IUD is within the anterior left myometrium. Electronically Signed: George Irving, at 15:48 EST , Service support ,
--- NOTE | 2019-05-02 14:35 | US_ITS ---
STUDY: ULTRASOUND OF THE FEMALE PELVIS - COMPLETE REASON FOR EXAM: Female, 33 years old. IUD placement. LMP: TECHNIQUE: Transabdominal and Transvaginal TECHNICAL QUALITY: Adequate. COMPARISON: None. FINDINGS: The uterus is anteverted and is in a midline position. The uterus measures 8.3 cm x 5.5 cm x 4.4 cm. There is a Nabothian cyst of the cervix. The endometrium measures 5 mm in thickness, and is hyperechoic. There is no demonstrated endometrial mass. There is no demonstrated myometrial mass. I.U.D. - The patient does have an I.U.D. . The IUD is within the anterior left myometrium. The right ovary is visualized. The right ovary measures 3.1 cm x 1.9 cm x 1.6 cm. There is no right ovarian cyst or ovarian mass. There is no visualized right adnexal mass or complex lesion. There is normal arterial and normal venous vascularity. The left ovary is visualized. The left ovary measures 3 cm x 1.4 cm x 1.8 cm. There is no left ovarian cyst or ovarian mass. There is no visualized left adnexal mass or complex lesion. There is normal arterial and normal venous vascularity. There is no fluid in the cul-de-sac. The pre void volume of the bladder was 298 ml. Polycystic ovary disease: No. US/Pelvic (Non ) IMPRESSION: The IUD is within the anterior left myometrium. Electronically Signed: George Irving, at 15:48 EST , Service support ,
== END ==
PROVIDERS: Family Provider Family Medicine; PCP Family Medicine; Referring Provider Obstetrics & Gynecology; Visit Provider Obstetrics & Gynecology
DX: Z30.430 Encounter for insertion of intrauterine contraceptive device (principal)
CPT/HCPCS: 76830; 76856

== ENCOUNTER 2020-08-20 20:51 | Emergency (ER) | payer OTHER, SELFPAY ==
[2019-05-03 16:42] VITALS: BMI 27.4
[2020-08-20 20:53] VITALS: BP 97/68; PULSE 77; RESP 18; TEMP 37.1; O2SAT 100; BMI 20.7
--- NOTE | 2020-08-20 21:15 | EKG12_ITS ---
Test Reason : PALPS Blood Pressure : / mmHG Vent. Rate : 073 BPM Atrial Rate : 073 BPM P-R Int : 116 ms QRS Dur : 084 ms QT Int : 372 ms P-R-T Axes : 069 073 063 degrees QTc Int : 409 ms Normal sinus rhythm Normal ECG Confirmed by CRUZ LAURENT, UBALDO ([id number]), associate entertainment editor HATTIE MONTENEGRO ([id number]) on 08/24/2020 2:48:29 PM Referred By: Confirmed By:NATALIIA ARROYO MD
--- NOTE | 2020-08-20 21:16 | CT_ITS ---
STUDY: CTA CHEST REASON FOR EXAM: Female, 34 years old. r/o pe RADIATION DOSAGE (If Supplied By Facility): CTDIvol = ( 6.045 ) mGy, DLP = ( 191.22 ) mGycm TECHNIQUE: The examination was performed with the intravenous administration of IV 100mL Isovue-370. Post-processing of the angiographic images was performed, with multiplanar reformation and 3D reconstruction. Individualized dose optimization techniques were used for this CT. COMPARISON: None. FINDINGS: Exam is limited due to minimal amount of fat which makes distinction of structures difficult. Normal enhancement of the main pulmonary artery and right and left pulmonary arteries. Normal enhancement of the bilateral peripheral pulmonary arteries. There is no demonstrated pulmonary embolism. Normal thoracic aorta and visualized great vessels. There is no demonstrated aortic dissection. Normal heart and pericardium. Normal mediastinum. Normal hilar regions. Normal visualized trachea and bronchi. The lungs are well expanded. Minimal posterior dependent atelectasis otherwise normal pulmonary parenchyma. Normal pleura. Normal chest wall structures. Normal osseous structures. Normal visualized upper abdomen. CT/CTA Chest W/WO Contrast IMPRESSION: Negative CTA chest examination, without a demonstrated pulmonary embolism or arterial dissection. Mild bilateral pleural effusions with minimal posterior dependent atelectasis. Otherwise no acute cardiopulmonary process. Electronically Signed: Barbie Jones MD at 22:32 EDT , Service support ,
[2020-08-20] MEDS: 0.9% Normal Saline 1,000 ML 1000 ML IV (21:25)
[2020-08-20 21:26] LABS: Absolute Lymphocyte Count 0.93 X10^3/uL (0.83-4.51); Absolute Neutrophil Count 11.5 X10^3/uL (2.0-7.7); Basophil# 0.05 X10^3/uL; Basophil% 0.4 % (0-1); Eosinophil# 0.12 X10^3/uL; Eosinophils% 0.9 % (0-5); Hematocrit 40.6 % (37-47); Hemoglobin 13.7 g/dL (12.0-15.0); Lymphocyte # 0.93 X10^3/ul (4.0); Lymphocyte % 6.9 % (19-41); Mean Corp Hgb Conc 33.7 g/dL (32-36); Mean Corpuscular Hgb 31.6 pg (27.0-32.0); Mean Corpuscular Volume 93.8 fL (81-99); Mean Platelet Vol. 11.6 fl (6.2-12.0); Monocyte# 0.79 X10^3/uL; Monocyte% 5.9 % (0-10); NRBC Flagged by Analyzer 0 % (0-5); Neutrophil # 11.49 X10^3/uL (2.7-7.7); Neutrophil % 85.7 % (47-70); Platelet Count 182 K/mm3 (150-450); RBC Distribution Width CV 12.5 % (11.6-14.6); RBC Distribution Width SD 43.1 fl (35.1-43.9); Red Blood Count 4.33 M/mm3 (4.2-5.4); White Blood Count 13.4 K/mm3 (4.4-11.0)
[2020-08-20 21:49] LABS: Internal QC Validated? YES +Cl - CLEAR BKGD; Pregnancy, Serum, hCG Quali. NEGATIVE Negative
[2020-08-20 21:57] LABS: ALB/GLOB Ratio 1.3 RATIO (0.9-2.4); AST(SGOT) 15 U/L (15-37); Alanine Aminotransfer ALT/SGPT 25 U/L (13-56); Albumin, Serum 3.8 g/dL (3.2-5.0); Alkaline Phosphatase 47 U/L (45-117); Anion Gap 4 (5-15); BUN 32 mg/dL (7-18); BUN/Creat Ratio 26.9 RATIO (10-20); Calcium,Total 8.5 mg/dL (8.5-10.1); Chloride 104 mmol/L (98-107); Creatinine, Serum 1.19 mg/dL (0.55-1.02); EST Glomerular Filtration Rate 55 mL/min (>60); Est Glom Filt Rate - Afr Amer 66 mL/min (>60); Estimated Creatinine Clearance 56.98 ml/min; Glucose 146 mg/dL (74-106); Potassium 3.5 mmol/L (3.5-5.1); Protein, Total 6.8 g/dL (6.4-8.2); Sodium Level 138 mmol/L (136-145)
[2020-08-20 22:18] VITALS: BP 104/64; PULSE 85; RESP 16; O2SAT 98
[2020-08-20 22:36] VITALS: O2SAT 98
[2020-08-20 22:45] VITALS: BP 105/58; PULSE 87; RESP 19; O2SAT 97
--- NOTE | 2020-08-20 22:50 | ED.DCSUM_ITS ---
- ER Visit Summary Date of Service: 08/20/20 Chief Complaint: Palpitations History of Present Illness: The patient is a 34 F presenting with palpitations. She states this started when she was diagnosed with Covid in mid June. She has had ongoing palpitations and shortness of breath. She has had intermittent fevers. She has had nausea and diarrhea. She denies vomiting. Denies chest pain or abdominal pain. She complains of diffuse myalgias and headache. She states initially she was treated with amoxicillin and prednisone for Covid pneumonia. She has had persistent symptoms of palpitations and shortness of breath. She had a Holter monitor over this past weekend but she does not have the results yet. She has had no syncope. She states her heart rate has been between 40 and 140 at home. Physical Examination: Vitals are stable. Patient is afebrile. Alert no acute distress. HEENT exam is unremarkable. Neck is supple. Lungs are clear and equal bilaterally. Heart is regular rate and rhythm. Abdomen is soft nontender nondistended. Extremities are unremarkable. Skin is warm and dry. No focal neurologic deficit. Remainder of exam is unremarkable. Emergency Department Course and Treatment: EKG is sinus rhythm rate of 73 with no acute ischemic changes. CBC shows white count 13.4. Chemistries normal except for glucose 146, BUN 32, creatinine 1.19. Troponin is negative. hCG negative. Her pulse ox with ambulation is 97% on room air. CTA chest was obtained and shows negative CTA chest examination, without a demonstrated pulmonary embolism or arterial dissection. Mild bilateral pleural effusions with minimal posterior dependent atelectasis. Otherwise no acute cardiopulmonary process. Repeat temperature 100.1. Patient was given Tylenol. Repeat troponin will be obtained and checked out to the oncoming physician. Disposition: Pending Impression: Palpitations, history of COVID-19 This note was generated with [employer] dictation software. It may contain incorrect words, spelling, and punctuation that were not noted in review of the chart prior to signing ED Disposition - Plan for ED Patient: Instructions: ED Palpitations Referrals: Julián Hooker MD [Primary Care Provider] -
[2020-08-20] MEDS: Acetaminophen 500 MG Tablet 1000 MG PO (23:30)
--- NOTE | 2020-08-20 23:49 | ED.DEP ---
ED Disposition - Plan for ED Patient: Instructions: ED Palpitations Referrals: Julián Hooker MD [Primary Care Provider] -
[2020-08-21 01:13] VITALS: BP 109/65; PULSE 71; RESP 18; O2SAT 96
== END 2020-08-21 01:14 | disposition home or self-care (01) ==
PROVIDERS: Emergency Provider Emergency Medicine; PCP Family Medicine
DX: R00.2 Palpitations (principal); Z86.16 Personal history of COVID-19; R19.7 Diarrhea, unspecified; R11.0 Nausea; R06.02 Shortness of breath; R51.9 Headache, unspecified; M79.10 Myalgia, unspecified site
CPT/HCPCS: 71275; 80053; 84484; 84703; 85025; 93005; 96360; 99285; J7030; Q9967; A4216

== ENCOUNTER → 2021-04-23 | Outpatient (CLI) | payer OTHER, SELFPAY ==
[2021-04-28 14:55] LABS: HPV APTIMA, High Risk Negative (Negative)
== END | disposition home or self-care (01) ==
PROVIDERS: PCP Family Medicine; Referring Provider Obstetrics & Gynecology; Visit Provider Obstetrics & Gynecology
DX: Z12.4 Encounter for screening for malignant neoplasm of cervix (principal)
CPT/HCPCS: 87624; 88175; G0145

== ENCOUNTER → 2022-06-10 | Outpatient (CLI) | payer OTHER, SELFPAY ==
[2022-06-10 11:21] LABS: Estradiol 191.4 pg/mL; Follicle Stimulating Hormone 3.3 mIU/mL; Luteinizing Hormone 4.6 mIU/mL; Thyroid Stim Hormone (TSH) 1.22 uIU/mL (0.358-3.74)
== END | disposition home or self-care (01) ==
LOC: PAVLAB 10:47
PROVIDERS: PCP Family Medicine; Referring Provider Obstetrics & Gynecology; Visit Provider Obstetrics & Gynecology
DX: A18.01 Tuberculosis of spine (principal); E28.39 Other primary ovarian failure; Z13.29 Encounter for screening for other suspected endocrine disorder
CPT/HCPCS: 36415; 82670; 83001; 83002; 84443

== ENCOUNTER → 2024-07-01 | Outpatient (CLI) | payer SELFPAY ==
--- NOTE | 2024-07-01 09:05 | US_ITS ---
PROCEDURE: DIAG MAMM W/CAD, BILAT; BREAST LIMITED UNILATERAL; BILAT BRST TAMIE STAND ALONE REASON FOR EXAM: 38-year-old female presents with right breast pain for 2 months. The patient is still nursing in the evening on the right breast. No family history of breast cancer. TECHNIQUE: Bilateral diagnostic digital breast tomosynthesis with 2D and 3D images. Computer aided detection. Also, targeted right breast ultrasound was performed. COMPARISON: Baseline examination, no priors. FINDINGS: MAMMOGRAM: The breasts are extremely dense which lowers the sensitivity of mammography. The mammogram demonstrates that the patient has dense breasts. Supplemental screening with whole breast ultrasound or MRI may be considered for further evaluation. There are bilateral retropectoral saline implants. There are no mammographic abnormalities in the lower outer right breast at the area of patient's reported pain. Otherwise, there are no suspicious masses, grouped calcifications or architectural distortions in either breast. RIGHT BREAST ULTRASOUND: Targeted right breast ultrasound performed of the lower outer quadrant of the right breast in the area of patient's reported pain demonstrates no suspicious sonographic findings. There is normal dense fibroglandular tissues in the partially visualized right saline breast implant. US/Breast Limited Unilateral IMPRESSION: 1. There are no suspicious mammographic or sonographic findings in the area of patient's reported pain in the right breast. Clinical management is recommended for the pain. 2. There is no mammographic evidence of malignancy in either breast. BI-RADS 1: NEGATIVE. RECOMMEND ANNUAL MAMMOGRAPHIC SCREENING. Follow-up code: Routine Follow-up Reading Location: [id number]
--- NOTE | 2024-07-01 09:09 | BI_ITS ---
PROCEDURE: DIAG MAMM W/CAD, BILAT; BREAST LIMITED UNILATERAL; BILAT BRST TAMIE STAND ALONE REASON FOR EXAM: 38-year-old female presents with right breast pain for 2 months. The patient is still nursing in the evening on the right breast. No family history of breast cancer. TECHNIQUE: Bilateral diagnostic digital breast tomosynthesis with 2D and 3D images. Computer aided detection. Also, targeted right breast ultrasound was performed. COMPARISON: Baseline examination, no priors. FINDINGS: MAMMOGRAM: The breasts are extremely dense which lowers the sensitivity of mammography. The mammogram demonstrates that the patient has dense breasts. Supplemental screening with whole breast ultrasound or MRI may be considered for further evaluation. There are bilateral retropectoral saline implants. There are no mammographic abnormalities in the lower outer right breast at the area of patient's reported pain. Otherwise, there are no suspicious masses, grouped calcifications or architectural distortions in either breast. RIGHT BREAST ULTRASOUND: Targeted right breast ultrasound performed of the lower outer quadrant of the right breast in the area of patient's reported pain demonstrates no suspicious sonographic findings. There is normal dense fibroglandular tissues in the partially visualized right saline breast implant. BI/Bilat Brst Tamie Stand Alone IMPRESSION: 1. There are no suspicious mammographic or sonographic findings in the area of patient's reported pain in the right breast. Clinical management is recommended for the pain. 2. There is no mammographic evidence of malignancy in either breast. BI-RADS 1: NEGATIVE. RECOMMEND ANNUAL MAMMOGRAPHIC SCREENING. Follow-up code: Routine Follow-up Reading Location: [id number]
== END | disposition home or self-care (01) ==
PROVIDERS: PCP Family Medicine; Referring Provider Nurse Practitioner Women's Health; Visit Provider Nurse Practitioner Women's Health
DX: N64.4 Mastodynia (principal); Z98.890 Other specified postprocedural states
CPT/HCPCS: 76642; 77062; 77066; G0279

== ENCOUNTER → 2024-10-18 | Outpatient (CLI) | payer OTHER, SELFPAY ==
--- NOTE | 2024-10-18 11:33 | MRI_ITS ---
PROCEDURE: BREAST BILATERAL W/O AND W 10/18/2024 REASON FOR EXAM: Right breast pain for 6 months at the outer edge with certain movements TECHNIQUE: Bilateral breast MRI using a dedicated bilateral breast coil before and following intravenous contrast. Images reviewed with subtraction and DynaCAD. CONTRAST: 10 cc COMPARISON: Prior bilateral mammogram June 2024 FINDINGS: Amount of Fibroglandular Tissue: Extreme fibroglandular tissue. Background Parenchymal Enhancement: Mild Bilateral saline breast implants without evidence of rupture. The right breast implant appears to be more laterally positioned/shifted towards the lateral side of the right breast in comparison to the left breast implant. RIGHT Breast: No suspicious mass or non-mass enhancement. LEFT Breast: No suspicious mass or non-mass enhancement. Other Findings: No suspicious axillary or internal mammary lymph nodes. MRI/Breast Bilateral W/O and W IMPRESSION: 1. No MRI evidence of malignancy in either breast. 2. Bilateral saline breast implants. The right breast implant appears to be mo re laterally positioned/shifted towards the lateral side of the right breast in comparison to the left breast implant sugge stive of possible lateral displacement. This might explain the reported right breast pain. Recommend plastic surgery consul tation. 3. Patient will be due for bilateral annual mammography in June 2025. OVERALL FINAL ASSESSMENT: BIRADS 2 BENIGN FINDING Reading Location: [id number]
== END | disposition home or self-care (01) ==
PROVIDERS: PCP Family Medicine; Referring Provider Obstetrics & Gynecology; Visit Provider Obstetrics & Gynecology
DX: N64.4 Mastodynia (principal); Z98.890 Other specified postprocedural states
CPT/HCPCS: 77049; A9575; A4216; C8908